=== PATIENT | female | born 2000 | race Caucasian/White ===

== ENCOUNTER 2020-12-20 18:08 | Emergency (ER) | payer OTHER, MEDICAID ==
[~2020-12-20] VITALS: Ht 162.6 cm; Wt 79.5 kg
[2020-12-20 18:16] VITALS: TEMP 98.2
[2020-12-20] MEDS ORDERED: OMNICEF 300MG300 MG PO (20:01)
[2020-12-20 20:23] VITALS: BP 119/60; PULSE 80
== END 2020-12-20 20:23 | disposition home or self-care (01) ==
LOC: COL.ER 18:08
DX: O99.519 Diseases of the respiratory system complicating pregnancy, unspecified trimester (principal); J40 Bronchitis, not specified as acute or chronic; O99.330 Smoking (tobacco) complicating pregnancy, unspecified trimester; F17.210 Nicotine dependence, cigarettes, uncomplicated; Z3A.00 Weeks of gestation of pregnancy not specified; Z20.822 Contact with and (suspected) exposure to COVID-19

== ENCOUNTER 2021-01-21 23:59 | Outpatient (CLI) | payer OTHER, MEDICAID ==
[~2021-01-21] VITALS: Ht 162.6 cm; Wt 79.5 kg
[~2021-01-21 23:59] MED LIST: OMNICEF 300MG300 MG PO
[2021-01-22 01:10] VITALS: BP 129/85; TEMP 98
--- NOTE | 2021-01-22 02:16 | NUR ---
AMNIO TEST WAS NEGATIVE AND CERVICAL EXAM OF PATIENT WAS CLOSED THICK AND HIGH.
== END 2021-01-22 01:31 | disposition home or self-care (01) ==
LOC: LDRO 23:59 → LDR 01-22 00:39 → LDRO 01-22 01:31 → LDR 01-24 16:48
DX: O26.899 Other specified pregnancy related conditions, unspecified trimester (principal); R10.9 Unspecified abdominal pain; Z3A.00 Weeks of gestation of pregnancy not specified
CPT/HCPCS: OP

== ENCOUNTER 2021-08-22 00:32 | Emergency (ER) | payer OTHER | END 2021-08-22 00:50 | disposition left against medical advice (07) | LOC: COL.ER 00:32 | DX: K08.89 Other specified disorders of teeth and supporting structures (principal) ==

== ENCOUNTER 2021-08-25 04:55 | Emergency (ER) | payer OTHER ==
[~2021-08-25] VITALS: Ht 162.6 cm; Wt 72.7 kg
[2021-08-25] MEDS ORDERED: NORCO 325 MG-51 TAB PO ×3 (05:22→06:03)
[2021-08-25] MEDS ORDERED: AMOXICILLIN 50500 MG PO ×3 (05:22→06:03)
[2021-08-25 05:25] VITALS: BP 128/91; PULSE 91; TEMP 98.2
[2021-08-25] MEDS ORDERED: PERIDEX (CHLOR480 ML MM ×3 (05:25→06:03)
== END 2021-08-25 05:34 | disposition home or self-care (01) ==
LOC: COL.ER 04:55
DX: K04.7 Periapical abscess without sinus (principal); K02.9 Dental caries, unspecified